=== PATIENT | female | born 1955 | race Caucasian/White ===

== ENCOUNTER 2018-10-08 08:42 | Emergency (ER) | payer BC, OTHER ==
--- NOTE | 2018-10-08 08:47 | ER Report ---
History and Physical Time Seen By MD: 08:46 HPI/ROS CHIEF COMPLAINT: Fall HISTORY OF PRESENT ILLNESS: Patient is a 62-year-old female here with complaints of dizziness, nausea, fall with trauma the right side of face. Patient does have complaints of headache, dizziness, the sensation of the room spinning. Patient did have fatigable rate beating horizontal nystagmus at time of evaluation. Patient denies prior history of vertiginous symptoms. Patient is hemodynamically stable at time of evaluation. Hemostasis was achieved prior to arrival. REVIEW OF SYSTEMS: Constitutional: No fever, no chills. Eyes: + Fatigable, horizontal right beating nystagmus, room spinning sensation ENT: No sore throat. Cardiovascular: No chest pain, no palpitations. Respiratory: No cough, no shortness of breath. Gastrointestinal: No abdominal pain, no vomiting. Genitourinary: No hematuria. Musculoskeletal: Right-sided facial pain without obvious bony deformity Skin: No rashes. Neurological: + Headache, lightheadedness, dizziness especially with movement Allergies: Coded Allergies: Sulfa (Sulfonamide Antibiotics) (Verified Allergy, Severe, HIVES, 10/08/18) Home Meds Active Scripts Meclizine Hcl (MECLIZINE HCL) 25 Mg Tablet, 25 MG PO BID, #20 TAB Prov:CHRIS HARDIN DO 10/08/18 Reported Medications [Hormone Therapy] No Conflict Check, 1 SQ Q30D 10/08/18 Constitutional Vital Sign - Last 24 Hours 10/08/18 10/08/18 10/08/18 10/08/18 08:42 08:47 08:51 09:00 Temp 98.5 Pulse 58 61 Resp 12 B/P (MAP) 159/89 (112) 159/89 144/93 (110) Pulse Ox 93 O2 Delivery Room Air 10/08/18 10/08/18 10/08/18 10/08/18 09:12 09:30 10:00 10:12 Pulse 58 58 Resp 16 B/P (MAP) 141/80 (100) 133/82 (99) Pulse Ox 94 91 10/08/18 10/08/18 10/08/18 10/08/18 10:30 11:00 11:05 11:10 Pulse 55 57 Resp 20 9 B/P (MAP) 120/80 (93) 121/87 (98) Pulse Ox 89 93 10/08/18 10/08/18 10/08/18 11:30 11:40 12:00 Pulse 58 Resp 8 B/P (MAP) 125/77 (93) 124/81 (95) Pulse Ox 90 Physical Exam General Appearance: The patient is alert, has no immediate need for airway protection and no signs of toxicity. Uncomfortable appearing Eyes:Fatigable right beating horizontal nystagmus ENT, Mouth: Mucous membranes are moist. Respiratory: There are no retractions, lungs are clear to auscultation. Cardiovascular: Regular rate and rhythm. Gastrointestinal: Abdomen is soft and non tender, no masses, bowel sounds normal. Neurological: No focal neurological deficits on examination, patient was alert and oriented though uncomfortable appearing Skin: Warm and dry, no rashes. Musculoskeletal: Neck is supple non tender. Extremities are nontender, nonswollen and have full range of motion. DIFFERENTIAL DIAGNOSIS: After history and physical exam differential diagnosis was considered for peripheral versus central vertigo, BPPV, vestibular neuritis, trauma, conductive degeneration, viral syndrome, intoxication Medical Decision Making Data Points Result Diagram: 10/08/18 0000 10/08/18 0000 Laboratory Hematology Test 10/08/18 00:00 10/08/18 10:50 Red Blood Count 5.15 M/uL (4.17-5.56) Mean Corpuscular Volume 88.6 fL (80.0-96.0) Mean Corpuscular Hemoglobin 29.5 pg (26.0-33.0) Mean Corpuscular Hemoglobin Concent 33.3 g/dL (32.0-36.0) Red Cell Distribution Width 14.6 % (11.5-14.5) Mean Platelet Volume 8.4 fL (7.2-11.1) Neutrophils (%) (Auto) 67.7 % (39.4-72.5) Lymphocytes (%) (Auto) 23.6 % (17.6-49.6) Monocytes (%) (Auto) 7.0 % (4.1-12.4) Eosinophils (%) (Auto) 1.0 % (0.4-6.7) Basophils (%) (Auto) 0.7 % (0.3-1.4) Nucleated RBC Relative Count (auto) 0.0 /100WBC Neutrophils # (Auto) 4.3 K/uL (2.0-7.4) Lymphocytes # (Auto) 1.5 K/uL (1.3-3.6) Monocytes # (Auto) 0.4 K/uL (0.3-1.0) Eosinophils # (Auto) 0.1 K/uL (0.0-0.5) Basophils # (Auto) 0.0 K/uL (0.0-0.1) Nucleated RBC Absolute Count (auto) 0.00 K/uL Sodium Level 138 mmol/L (137-145) Potassium Level 3.7 mmol/L (3.5-5.0) Chloride Level 106 mmol/L (98-107) Carbon Dioxide Level 24 mmol/L (22-31) Blood Urea Nitrogen 12 mg/dl (7-18) Creatinine 0.70 mg/dl (0.52-1.04) Glomerular Filtration Rate Calc > 60.0 Random Glucose 108 mg/dl (75-110) Calcium Level 8.7 mg/dl (8.4-10.2) Total Bilirubin 0.5 mg/dl (0.2-1.3) Aspartate Amino Transf (AST/SGOT) 29 U/L (0-35) Alanine Aminotransferase (ALT/SGPT) 20 U/L (0-56) Alkaline Phosphatase 86 U/L (0-126) Troponin I < 0.012 ng/ml Total Protein 7.3 g/dl (6.3-8.2) Albumin 4.4 g/dl (3.5-5.0) Urine Color Straw Urine Clarity Slightly-cloudy Urine pH 7.0 pH (4.8-9.5) Urine Specific Thomas 1.005 Urine Protein Negative mg/dL (NEGATIVE) Urine Glucose (UA) Negative mg/dL (NEGATIVE) Urine Ketones Trace mg/dL (NEGATIVE) Urine Blood Negative (NEGATIVE) Urine Nitrite Negative (NEGATIVE) Urine Bilirubin Negative (NEGATIVE) Urine Urobilinogen Negative mg/dL (0.2-1.9) Urine Leukocyte Esterase Trace (NEGATIVE) Urine RBC <1 /HPF (0-2/HPF) Urine WBC 2 /HPF (0-5/HPF) Urine Squamous Epithelial Cells Moderate /LPF (</=FEW) Urine Bacteria Few /HPF (NONE-FEW) Urine Mucus None /HPF (NONE-FEW) Chemistry Test 10/08/18 00:00 10/08/18 10:50 White Blood Count 6.3 k/uL (4.5-11.0) Red Blood Count 5.15 M/uL (4.17-5.56) Hemoglobin 15.2 g/dL (12.0-16.0) Hematocrit 45.6 % (34.0-47.0) Mean Corpuscular Volume 88.6 fL (80.0-96.0) Mean Corpuscular Hemoglobin 29.5 pg (26.0-33.0) Mean Corpuscular Hemoglobin Concent 33.3 g/dL (32.0-36.0) Red Cell Distribution Width 14.6 % (11.5-14.5) Platelet Count 219 K/uL (150-450) Mean Platelet Volume 8.4 fL (7.2-11.1) Neutrophils (%) (Auto) 67.7 % (39.4-72.5) Lymphocytes (%) (Auto) 23.6 % (17.6-49.6) Monocytes (%) (Auto) 7.0 % (4.1-12.4) Eosinophils (%) (Auto) 1.0 % (0.4-6.7) Basophils (%) (Auto) 0.7 % (0.3-1.4) Nucleated RBC Relative Count (auto) 0.0 /100WBC Neutrophils # (Auto) 4.3 K/uL (2.0-7.4) Lymphocytes # (Auto) 1.5 K/uL (1.3-3.6) Monocytes # (Auto) 0.4 K/uL (0.3-1.0) Eosinophils # (Auto) 0.1 K/uL (0.0-0.5) Basophils # (Auto) 0.0 K/uL (0.0-0.1) Nucleated RBC Absolute Count (auto) 0.00 K/uL Glomerular Filtration Rate Calc > 60.0 Calcium Level 8.7 mg/dl (8.4-10.2) Total Bilirubin 0.5 mg/dl (0.2-1.3) Aspartate Amino Transf (AST/SGOT) 29 U/L (0-35) Alanine Aminotransferase (ALT/SGPT) 20 U/L (0-56) Alkaline Phosphatase 86 U/L (0-126) Troponin I < 0.012 ng/ml Total Protein 7.3 g/dl (6.3-8.2) Albumin 4.4 g/dl (3.5-5.0) Urine Color Straw Urine Clarity Slightly-cloudy Urine pH 7.0 pH (4.8-9.5) Urine Specific Thomas 1.005 Urine Protein Negative mg/dL (NEGATIVE) Urine Glucose (UA) Negative mg/dL (NEGATIVE) Urine Ketones Trace mg/dL (NEGATIVE) Urine Blood Negative (NEGATIVE) Urine Nitrite Negative (NEGATIVE) Urine Bilirubin Negative (NEGATIVE) Urine Urobilinogen Negative mg/dL (0.2-1.9) Urine Leukocyte Esterase Trace (NEGATIVE) Urine RBC <1 /HPF (0-2/HPF) Urine WBC 2 /HPF (0-5/HPF) Urine Squamous Epithelial Cells Moderate /LPF (</=FEW) Urine Bacteria Few /HPF (NONE-FEW) Urine Mucus None /HPF (NONE-FEW) Urinalysis Test 10/08/18 10:50 Urine Color Straw Urine Clarity Slightly-cloudy Urine pH 7.0 pH (4.8-9.5) Urine Specific Thomas 1.005 Urine Protein Negative mg/dL (NEGATIVE) Urine Glucose (UA) Negative mg/dL (NEGATIVE) Urine Ketones Trace mg/dL (NEGATIVE) Urine Blood Negative (NEGATIVE) Urine Nitrite Negative (NEGATIVE) Urine Bilirubin Negative (NEGATIVE) Urine Urobilinogen Negative mg/dL (0.2-1.9) Urine Leukocyte Esterase Trace (NEGATIVE) Urine RBC <1 /HPF (0-2/HPF) Urine WBC 2 /HPF (0-5/HPF) Urine Squamous Epithelial Cells Moderate /LPF (</=FEW) Urine Bacteria Few /HPF (NONE-FEW) Urine Mucus None /HPF (NONE-FEW) EKG/Imaging EKG Interpretation PATIENT NAME: BRIAN YOUNG : [id number] MR: [id number] V: [id number] EXAM DATE: ORDERING PHYSICIAN: CHRIS HARDIN TECHNOLOGIST: JONA Luciano Reason : DIZZY Blood Pressure : / mmHG Vent. Rate : 058 BPM Atrial Rate : 058 BPM P-R Int : 156 ms QRS Dur : 094 ms QT Int : 424 ms P-R-T Axes : 053 028 033 degrees QTc Int : 416 ms Sinus bradycardia Otherwise normal ECG No previous ECGs available Referred By: LASHAWN Confirmed By: Imaging PATIENT NAME: Brian Young : 1955 MR: [id number] V: [id number] EXAM DATE: ORDERING PHYSICIAN: CHRIS HARDIN TECHNOLOGIST: Location: [facility] Patient: Brian Young : 1955 Visit/Account:[id number] Date of Sevice: 10/08/2018 CT Head without contrast and CT Cervical spine: Indication: Comparison: None available Technique: CT head: Axial CT images were obtained through the brain from the skull base to the vertex without administration of IV contrast. Reformatted coronal and sagittal images were also obtained. Technique: CT cervical spine: Axial CT imaging of the cervical spine was performed. 2-D sagittal and coronal CT reformats were also obtained. One of the following dose optimization techniques was utilized in the performance of this exam: automated exposure control; adjustment of the mA and/or kV according to the patient's size; or use of an iterative reconstruction technique. Specific details can be referenced in the facility's radiology CT exam operational policy. FINDINGS: CT head: No evidence of mass, mass effect, or midline shift. No acute intracranial hemorrhage or acute territorial infarction. There are no periventricular deep white matter chronic ischemic changes. Dense calcification is noted involving the anterior falx. CT sinuses: Visualized mastoid air cells are clear. The bilateral ostiomeatal complexes are patent. The bilateral maxillary sinuses show no significant mucosal thickening or air- fluid levels. The ethmoid air cells are clear. The sphenoid sinuses and frontal sinuses are also clear. No air-fluid levels identified. No significant cortical thickening of the brown of the visualized paranasal sinuses. Limited views of the brain parenchyma are unremarkable as well. The bilateral orbits are intact. The pterygoid plates are intact. CT cervical spine: No cervical spine fracture or acute subluxation is identified.. The prevertebral soft tissues appear unremarkable. The vertebral body heights are well maintained. Disc spaces appear unremarkable. IMPRESSION: 1. No acute intracranial abnormality. 2. No acute osseous or acute alignment abnormality of the cervical spine. 3. Negative CT of the sinuses PATIENT NAME: Brian Young : 1955 MR: [id number] V: [id number] EXAM DATE: ORDERING PHYSICIAN: CHRIS HARDIN TECHNOLOGIST: Location: [facility] Patient: Brian Young : 1955 Visit/Account:[id number] Date of : 10/08/2018 CT Head without contrast and CT Cervical spine: Indication: Comparison: None available Technique: CT head: Axial CT images were obtained through the brain from the skull base to the vertex without administration of IV contrast. Reformatted coronal and sagittal images were also obtained. Technique: CT cervical spine: Axial CT imaging of the cervical spine was performed. 2-D sagittal and coronal CT reformats were also obtained. One of the following dose optimization techniques was utilized in the performance of this exam: automated exposure control; adjustment of the mA and/or kV according to the patient's size; or use of an iterative reconstruction technique. Specific details can be referenced in the facility's radiology CT exam operational policy. FINDINGS: CT head: No evidence of mass, mass effect, or midline shift. No acute intracranial hemorrhage or acute territorial infarction. There are no periventricular deep white matter chronic ischemic changes. Dense calcification is noted involving the anterior falx. CT sinuses: Visualized mastoid air cells are clear. The bilateral ostiomeatal complexes are patent. The bilateral maxillary sinuses show no significant mucosal thickening or air-fl uid levels. The ethmoid air cells are clear. The sphenoid sinuses and frontal sinuses are also clear. No air-fluid levels identified. No significant cortical thickening of the brown of the visualized paranasal sinuses. Limited views of the brain parenchyma are unremarkable as well. The bilateral orbits are intact. The pterygoid plates are intact. CT cervical spine: No cervical spine fracture or acute subluxation is identified.. The prevertebral soft tissues appear unremarkable. The vertebral body heights are well maintained. Disc spaces appear unremarkable. IMPRESSION: 1. No acute intracranial abnormality. 2. No acute osseous or acute alignment abnormality of the cervical spine. 3. Negative CT of the sinuses PATIENT NAME: Brian Young : 1955 MR: [id number] V: [id number] EXAM DATE: ORDERING PHYSICIAN: CHRIS HARDIN TECHNOLOGIST: Location: [facility] Patient: Brian Young : 1955 Visit/Account:[id number] Date of : 10/08/2018 CT Head without contrast and CT Cervical spine: Indication: Comparison: None available Technique: CT head: Axial CT images were obtained through the brain from the skull base to the vertex without administration of IV contrast. Reformatted coronal and sagittal images were also obtained. Technique: CT cervical spine: Axial CT imaging of the cervical spine was performed. 2-D sagittal and coronal CT reformats were also obtained. One of the following dose optimization techniques was utilized in the performance of this exam: automated exposure control; adjustment of the mA and/or kV according to the patient's size; or use of an iterative reconstruction technique. Specific details can be referenced in the facility's radiology CT exam operational policy. FINDINGS: CT head: No evidence of mass, mass effect, or midline shift. No acute intracranial hemorrhage or acute territorial infarction. There are no periventricular deep white matter chronic ischemic changes. Dense calcification is noted involving the anterior falx. CT sinuses: Visualized mastoid air cells are clear. The bilateral ostiomeatal complexes are patent. The bilateral maxillary sinuses show no significant mucosal thickening or air- fluid levels. The ethmoid air cells are clear. The sphenoid sinuses and frontal sinuses are also clear. No air-fluid levels identified. No significant cortical thickening of the brown of the visualized paranasal sinuses. Limited views of the brain parenchyma are unremarkable as well. The bilateral orbits are intact. The pterygoid plates are intact. CT cervical spine: No cervical spine fracture or acute subluxation is identified.. The prevertebral soft tissues appear unremarkable. The vertebral body heights are well maintained. Disc spaces appear unremarkable. IMPRESSION: 1. No acute intracranial abnormality. 2. No acute osseous or acute alignment abnormality of the cervical spine. 3. Negative CT of the sinuses ED Course/Re-evaluation ED Course Patient is a 8-year-old female here with complaints of vertiginous symptoms, room spinning sensation, acute onset, no prior history of similar episodes. Patient reportedly fell striking the right side of her face with also having complaints of neck pain. CT imaging of the head, face, C-spine showed no acute fractures or bleeds. Labs are unremarkable, troponin was negative, EKG showed no ischemic changes or arrhythmias. Patient was given diazepam, normal saline bolus for treatment. Patient only had mild relief of symptoms so she was given meclizine or Antivert for treatment. Prescription provided for outpatient treatment. Patient was hemodynamically stable throughout course, stable at time of discharge. Return precautions provided. Close PCP follow-up recommended Decision to Disposition Date: Oct 08, 2018 Decision to Disposition Time: 12:01 Depart Departure Latest Vital Signs Vital Signs Date Time Temp Pulse Resp B/P (MAP) Pulse Ox O2 Delivery O2 Flow Rate FiO2 10/08/18 12:00 124/81 (95) 10/08/18 11:40 58 8 90 10/08/18 08:51 98.5 Room Air Impression: Primary Impression: Fall Additional Impression: Vertigo Condition: Improved Disposition: HOME OR SELF-CARE New Scripts Meclizine Hcl (MECLIZINE HCL) 25 Mg Tablet 25 MG PO BID, #20 TAB Prov: CHRIS HARDIN DO 10/08/18 Patient Instructions: Fall Prevention (ED), Vertigo (ED) Additional Instructions: Please drink plenty of water. You were diagnosed with vertigo, contusion as there were no fractures or intracranial bleeds identified on CT imaging. Please follow-up with your family doctor in the next 24-48 hours. Please return imm ediately if you develop worsening headache, visual changes, nausea, vomiting. Problem Qualifiers CHRIS HARDIN DO Oct 08, 2018 08:47
[2018-10-08] MEDS ORDERED: HORMONE THERAPY SQ (08:59)
[2018-10-08] MEDS ORDERED: NS(*) 0.9% 1000 ML BAG 1,000 ML IV ONE (09:15)
[2018-10-08] MEDS ORDERED: DIAZEPAM 5 MG TAB PO ONE (09:15)
[2018-10-08 09:23] LABS: PLATELET COUNT, AUTOMATED 219 K/uL (150-450)
--- NOTE | 2018-10-08 09:24 | EKG ---
[place] [facility] [place] NAME: BRIAN YOUNG : [id number] MR: [id number] V: [id number] EXAM DATE: ORDERING PHYSICIAN: CHRIS HARDIN TECHNOLOGIST: JONA Luciano Reason : DIZZY Blood Pressure : / mmHG Vent. Rate : 058 BPM Atrial Rate : 058 BPM P-R Int : 156 ms QRS Dur : 094 ms QT Int : 424 ms P-R-T Axes : 053 028 033 degrees QTc Int : 416 ms Sinus bradycardia Otherwise normal ECG No previous ECGs available Confirmed by JONATAN MONTOYA ([id number]) on 10/08/2018 2:39:36 PM Referred By: LASHAWN Confirmed By:JONATAN MONTOYA
--- NOTE | 2018-10-08 10:30 | RADIOLOGY IMAGING REPORT ---
FACILITY: [facility] - [place] PATIENT NAME: Brittany Verduzco : 1955 MR: [id number] V: [id number] EXAM DATE: ORDERING PHYSICIAN: CHRIS HARDIN TECHNOLOGIST: Location: [facility] Patient: Brittany Verduzco : 1955 Visit/Account:[id number] Date of Sevice: 10/08/2018 CT Head without contrast and CT Cervical spine: Indication: Comparison: None available Technique: CT head: Axial CT images were obtained through the brain from the skull base to the verte x without administration of IV contrast. Reformatted coronal and sagittal images were also obtained. Technique: CT cervical spine: Axial CT imaging of the cervical spine was performed. 2-D sagittal and coronal CT reformats were also obtained. One of the following dose optimization techniques was utilized in the performance of this exam: autom ated exposure control; adjustment of the mA and/or kV according to the patient's size; or use of an i terative reconstruction technique. Specific details can be referenced in the facility's radiology CT exam operational policy. FINDINGS: CT head: No evidence of mass, mass effect, or midline shift. No acute intracranial hemorrhage or acute territorial infarction. There are no periventricular deep white matter chronic ischemic changes. Dense calcification is noted involving the anterior falx. CT sinuses: Visualized mastoid air cells are clear. The bilateral ostiomeatal complexes are patent. The bilateral maxillary sinuses show no significant mucosal thickening or air-fluid levels. The ethmoid air cells are clear. The sphenoid sinuses and frontal sinuses are also clear. No air-fluid levels identified. No significant cortical thickening of the brown of the visualized paranasal sinuses. Limited views of the brain parenchyma are unremarkable as well. The bilateral orbits are intact. The pterygoid plates are intact. CT cervical spine: No cervical spine fracture or acute subluxation is identified.. The prevertebral soft tissues appear unremarkable. The vertebral body heights are well maintained. Disc spaces appear unremarkable. IMPRESSION: 1. No acute intracranial abnormality. 2. No acute osseous or acute alignment abnormality of the cervical spine. 3. Negative CT of the sinuses Report Dictated By: Howie Jarrell at 10/08/2018 10:06 AM Report E-Signed By: Howie Jarrell at 10/08/2018 10:27 AM WSN:[id number]
--- NOTE | 2018-10-08 10:31 | RADIOLOGY IMAGING REPORT ---
FACILITY: [facility] PATIENT NAME: Brittany Verduzco : 1955 MR: [id number] V: [id number] EXAM DATE: ORDERING PHYSICIAN: CHRIS HARDIN TECHNOLOGIST: [facility] Patient: Brittany Verduzco : 1955 Visit/Account:[id number] Date of Sevice: 10/08/2018 CT Head without contrast and CT Cervical spine: Indication: Comparison: None available Technique: CT head: Axial CT images were obtained through the brain from the skull base to the verte x without administration of IV contrast. Reformatted coronal and sagittal images were also obtained. Technique: CT cervical spine: Axial CT imaging of the cervical spine was performed. 2-D sagittal and coronal CT reformats were also obtained. One of the following dose optimization techniques was utilized in the performance of this exam: autom ated exposure control; adjustment of the mA and/or kV according to the patient's size; or use of an i terative reconstruction technique. Specific details can be referenced in the facility's radiology CT exam operational policy. FINDINGS: CT head: No evidence of mass, mass effect, or midline shift. No acute intracranial hemorrhage or acute territorial infarction. There are no periventricular deep white matter chronic ischemic changes. Dense calcification is noted involving the anterior falx. CT sinuses: Visualized mastoid air cells are clear. The bilateral ostiomeatal complexes are patent. The bilateral maxillary sinuses show no significant mucosal thickening or air-fluid levels. The ethmoid air cells are clear. The sphenoid sinuses and frontal sinuses are also clear. No air-fluid levels identified. No significant cortical thickening of the brown of the visualized paranasal sinuses. Limited views of the brain parenchyma are unremarkable as well. The bilateral orbits are intact. The pterygoid plates are intact. CT cervical spine: No cervical spine fracture or acute subluxation is identified.. The prevertebral soft tissues appear unremarkable. The vertebral body heights are well maintained. Disc spaces appear unremarkable. IMPRESSION: 1. No acute intracranial abnormality. 2. No acute osseous or acute alignment abnormality of the cervical spine. 3. Negative CT of the sinuses Report Dictated By: Howie Jarrell at 10/08/2018 10:06 AM Report E-Signed By: Howie Jarrell at 10/08/2018 10:27 AM WSN:[id number]
--- NOTE | 2018-10-08 10:31 | RADIOLOGY IMAGING REPORT ---
[place] [facility] [place] Brittany Verduzco : 1955 MR: [id number] V: [id number] EXAM DATE: ORDERING PHYSICIAN: CHRIS HARDIN TECHNOLOGIST: Location: [facility] Patient: Brittany Verduzco : 1955 Visit/Account:[id number] Date of Sevice: 10/08/2018 CT Head without contrast and CT Cervical spine: Indication: Comparison: None available Technique: CT head: Axial CT images were obtained through the brain from the skull base to the verte x without administration of IV contrast. Reformatted coronal and sagittal images were also obtained. Technique: CT cervical spine: Axial CT imaging of the cervical spine was performed. 2-D sagittal and coronal CT reformats were also obtained. One of the following dose optimization techniques was utilized in the performance of this exam: autom ated exposure control; adjustment of the mA and/or kV according to the patient's size; or use of an i terative reconstruction technique. Specific details can be referenced in the facility's radiology CT exam operational policy. FINDINGS: CT head: No evidence of mass, mass effect, or midline shift. No acute intracranial hemorrhage or acute territorial infarction. There are no periventricular deep white matter chronic ischemic changes. Dense calcification is noted involving the anterior falx. CT sinuses: Visualized mastoid air cells are clear. The bilateral ostiomeatal complexes are patent. The bilateral maxillary sinuses show no significant mucosal thickening or air-fluid levels. The ethmoid air cells are clear. The sphenoid sinuses and frontal sinuses are also clear. No air-fluid levels identified. No significant cortical thickening of the brown of the visualized paranasal sinuses. Limited views of the brain parenchyma are unremarkable as well. The bilateral orbits are intact. The pterygoid plates are intact. CT cervical spine: No cervical spine fracture or acute subluxation is identified.. The prevertebral soft tissues appear unremarkable. The vertebral body heights are well maintained. Disc spaces appear unremarkable. IMPRESSION: 1. No acute intracranial abnormality. 2. No acute osseous or acute alignment abnormality of the cervical spine. 3. Negative CT of the sinuses Report Dictated By: Howie Jarrell at 10/08/2018 10:06 AM Report E-Signed By: Howie Jarrell at 10/08/2018 10:27 AM WSN:[id number]
[2018-10-08 12:00] VITALS: BP 124/81
[2018-10-08] MEDS ORDERED: MECLIZINE HCL 25 MG TAB PO ONE (12:10)
[2018-10-08] MEDS ORDERED: MECL25TA9 PO (12:13)
== END 2018-10-08 12:23 | disposition home or self-care (01) ==
LOC: ER 08:54
DX: R42 Dizziness and giddiness (principal); W19.XXXA Unspecified fall, initial encounter
CPT/HCPCS: 70450; 70486; 72125; 81001; 84484; 85025; 93005; 96360; 99284; J7030; J8597; 82040; 82247; 82310; 82374; 82435; 82565; 82947; 84075; 84132; 84155; 84295; 84450; 84460; 84520